=== PATIENT | male | born 1960 | race Caucasian/White ===

== ENCOUNTER 2022-03-11 00:48 | Day surgery (SDC) | payer OTHER, SELFPAY ==
[2022-02-26 12:58] VITALS: BMI 27.9
--- NOTE | 2022-03-10 17:00 | PM.HPGS ---
History of Present Illness History of Present Illness Consent: Risks, benefits, and alternatives have been discussed and questions answered. Patient agrees to proceed with procedure. Chief complaint: neoplasm screening Narrative: Khari Chopra is a 61 year old male referred for colon cancer screening. This is his 1st colonoscopy Review of Systems Review of Systems: All systems reviewed & are unremarkable except as noted in HPI and below PMFSH Past Medical History Medical History Bilateral cataracts BMI 27.0-27.9,adult QASIM (obstructive sleep apnea) Screen for colon cancer Screening for lipid disorders Screening for prostate cancer Family History Family History Father Mother Acute myocardial infarction Sibling No problems noted. 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 Gender identity (if verbalized by the patient): Male Spiritual care concerns: No Meds Home Medications and Allergies Home Medications Medication Instructions Recorded Confirmed Type No Home Medications 01/30/22 02/26/22 History Allergies Allergy/AdvReac Type Severity Reaction Status Date / Time No Known Allergies Allergy Verified 03/11/22 08:20 Exam Resp: Auscultation: clear to auscultation bilaterally Cardio: Rate: regular rate Rhythm: regular rhythm GI: GI Palp: Yes Soft to palpation and No Tenderness to palpation present (GI) Assessment and Plan Assessment and plan (1) Screen for colon cancer: Code(s): Z12.11 - Encounter for screening for malignant neoplasm of colon Status: Acute Assessment and Plan: Colonoscopy with possible biopsy or polypectomy or cautery or injection of substances.
[2022-03-11 08:21] VITALS: BP 130/77; PULSE 92; RESP 16; TEMP 36.2; O2SAT 95
[2022-03-11] MEDS: LACTATED RINGERS 1,000 ML 150 ML IV CONT (08:30)
--- NOTE | 2022-03-11 08:50 | P.PNAN_ITS ---
Anes - Initial Pre Proc Eval Procedure: Operation Date: 03/11/22 09:30 Proposed Procedures p Screening Colonoscopy - Matt Cohn MD Date/Time: 03/11/22 08:50 Surgeon: Matt Cohn MD Pre Op Diagnosis: neoplasm screening Patient Data Age: 61 Gender: M Height: 1.8 m Weight: 90.5 kg Last Vital Signs Temp 97.1 F L 03/11/22 08:21 Pulse 92 03/11/22 08:21 Resp 16 03/11/22 08:21 BP 130/77 03/11/22 08:21 Pulse Ox 95 03/11/22 08:21 Allergies Allergy/AdvReac Type Severity Reaction Status Date / Time No Known Allergies Allergy Verified 03/11/22 08:20 Home Medications Medication Instructions Recorded Confirmed Type No Home Medications 01/30/22 02/26/22 History Patient hx anesthesia problems: none Family hx anesthesia problems: none Results Review: All pre-operative results and documents have been reviewed as part of the pre-operative evaluation. [facility] Past Medical History Medical History Bilateral cataracts BMI 27.0-27.9,adult QASIM (obstructive sleep apnea) Screen for colon cancer Screening for lipid disorders Screening for prostate cancer Family History Family History Father Mother Acute myocardial infarction Sibling No problems noted. 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 Informed Consent: The patient's anesthetic plan and its attendant risks and benefits were discussed with the patient/family/POA. Questions were solicited and answers provided to the satisfaction of the patient/family/POA.
[2022-03-11] MEDS: SIMETHICONE ORAL SUSPENSION 20 MG/0.3 ML 30 ML BOTTLE 0.6 ML IRRIGATION (09:07)
[2022-03-11 09:15] VITALS: BP 105/70; PULSE 75; RESP 16; O2SAT 93
[2022-03-11 09:25] VITALS: BP 103/72; PULSE 80; RESP 20; O2SAT 98
[2022-03-11 09:35] VITALS: BP 123/90; PULSE 69; RESP 17; O2SAT 98
== END 2022-03-11 09:46 | disposition home or self-care (01) ==
PROVIDERS: PCP Family Medicine; Visit Provider Internal Medicine Gastroenterology
PROC: 0DJD8ZZ Inspection of Lower Intestinal Tract, Via Natural or Artificial Opening Endoscopic (ICD-10-PCS; CPT 45378; principal; 2022-03-11 09:30)
DX: Z12.11 Encounter for screening for malignant neoplasm of colon (principal); K57.30 Diverticulosis of large intestine without perforation or abscess without bleeding; D12.4 Benign neoplasm of descending colon; G47.33 Obstructive sleep apnea (adult) (pediatric)
CPT/HCPCS: 45385; 88305; J2704; J7120

== ENCOUNTER 2023-06-15 08:13 | Outpatient (CLI) | payer OTHER, SELFPAY ==
--- NOTE | 2023-06-19 19:10 | WPDHOMESLEEP ---
Sleep Study - Home Unattended Date of Study: 06/15/23 Ordering Provider: Leonard Dias MD Interpreting Provider: Claire Stacy, DO Home Sleep Study Type: Apnea Link Air Height: 1.8 m Weight: 86.183 kg Body Mass Index: 26.4 Neck Circumference (inches): 15.5 [place]: 9 Reason for Sleep Study Witnessed apneas, daytime hypersomnia Sleep History The patient is a 62-year-old male that had a sleep study ordered by his primary care for evaluation of sleep apnea. The patient occasionally awakens from sleep short of breath. He occasionally awakens at night with heartburn, belching or cough. He constantly snores loudly enough that others complain. He constantly has trouble sleeping when he has a cold. He occasionally wakes up gasping for air throughout the night. He rarely has breathing problems at night observed by himself or others. He rarely sweats excessively at night. He occasionally has heart palpitations or irregular heartbeats during the night. He rarely falls asleep during the day but never while driving. He denies cataplexy. He occasionally has trouble at school or work due to sleepiness. He frequently feels unable to move while waking up or falling asleep. He occasionally experiences vivid dreamlike scenes upon awakening or falling asleep. He rarely feels afraid of going to sleep. He occasionally has nightmares and occasionally remembers his dreams. He rarely has thoughts racing through his mind. He rarely feels sad or depressed. He rarely has anxiety. He rarely has muscular tension. He occasionally notices parts of his body jerk. He occasionally kicks during the night. He rarely has crawling and aching feelings in his legs and rarely has leg pain during the night. He constantly grinds his teeth during sleep but never awakens with morning jaw pain. He denies being bothered by pain during the day and rarely awakens by pain during the night. He occasionally wakes up feeling stiff in the morning. He denies waking up with sore or achy muscles. He denies waking up with pain in the neck, spine or other joints. He goes to bed at 11:00 p.m. on both weekdays and weekends. It takes him 30 minutes or up to an hour to fall asleep. He wakes up 3 times throughout the night to toss and turn and it can take 1 hour for him to fall back asleep. He wakes up at 8:00 a.m. on both weekdays and weekends. He typically gets 4-5 hours of sleep per night. He will stay in bed for 30 minutes after waking up in the morning. He does not consume any caffeinated beverages within 2 hours of bedtime. He does not engage in physical exercise before bedtime. He will watch television before falling asleep. He will take naps in the afternoon or the evening but they are not refreshing. He consumes 3 cups of caffeinated beverage per day. He denies alcohol and recreational drug use. [facility] Past Medical History Medical History Bilateral cataracts BMI 27.0-27.9,adult Cataract (lens) fragments in eye following cataract surgery, bilateral QASIM (obstructive sleep apnea) Overweight with body mass index (BMI) of 28 to 28.9 in adult Screen for colon cancer Screening for lipid disorders Screening for prostate cancer Family History Family History Father Mother Acute myocardial infarction Sibling No problems noted. 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
[2023-06-19 19:17] VITALS: BMI 26.4
== END 2023-06-17 14:27 | disposition home or self-care (01) ==
LOC: ANHCSM 08:14
PROVIDERS: PCP Family Medicine; Visit Provider Family Medicine
DX: G47.10 Hypersomnia, unspecified (principal); G47.33 Obstructive sleep apnea (adult) (pediatric)
CPT/HCPCS: 95806

== ENCOUNTER 2023-08-11 09:09 | Outpatient (CLI) | payer OTHER, SELFPAY ==
--- NOTE | 2023-08-25 11:41 | WPDSLEEPSTUD ---
Sleep Study Date of Study: 08/11/23 Ordering Provider: Leonard Dias MD Interpreting Physician: Meaghan Akhtar MD Sleep Study Type: BiPAP Titration Height: 1.8 m Weight: 86.183 kg Body Mass Index: 26.4 Neck Circumference (inches): 15.5 [place]: 9 Reason for Sleep Study * 06/15/2023 home sleep test with [facility]nea[facility] showing severe obstructive sleep apnea, AHI of 51.2 with desaturation down to 73%, and central apnea index 10.8; pateint presents for PAP titration. Sleep History Khari Bunch is a 63-year-old male with severe obstructive sleep apnea on a home sleep test, returns for PAP titration. He occasionally awakens from sleep feeling short of breath.? He occasionally awakens at night with heartburn, belching or coughing.? He constantly snores loudly enough that others complain.? He constantly has trouble sleeping when he has a cold.? He occasionally wakes up gasping for air at night. He rarely has breathing problems at night observed by others.? He rarely sweats excessively at night.? He occasionally has heart palpitations or irregular heartbeats during the night.? He rarely falls asleep during the day but never while driving.? He denies muscle weakness with strong emotion. He occasionally has trouble at school or work due to sleepiness.? He frequently feels unable to move while waking up or falling asleep.? He occasionally experiences vivid dreamlike scenes upon awakening or falling asleep.? He rarely feels afraid of going to sleep.? He occasionally has nightmares and occasionally remembers his dreams.? He rarely has thoughts racing through his mind.? He rarely feels sad or depressed.? He rarely has anxiety.? He rarely has muscular tension.? He occasionally notices parts of his body jerk.? He occasionally kicks during the night.? He rarely has crawling and aching feelings in his legs and rarely has leg pain during the night.? He constantly grinds his teeth during sleep but never awakens with morning jaw pain.? He denies being bothered by pain during the day and rarely awakens by pain during the night.? He occasionally wakes up feeling stiff in the morning.? He denies waking up with sore or achy muscles.? He denies waking up with pain in the neck, spine or other joints.? Normal bedtime is 11:00 p.m., taking 30 minutes or up to an hour to fall asleep.? He wakes up 3 times throughout the night to toss and turn, sometimes taking an hour for him to return to sleep. He wakes up at 8:00 a.m. He typically gets 4-5 hours of sleep per night.? He will take naps in the afternoon or the evening however a short nap is not refreshing.? Habits: Tobacco: none. Caffeine: 3 cups per day. Alcohol: none. Recreational substance: none. [facility] Past Medical History Medical History (Updated 08/26/23 @ 10:20 by Meaghan Akhtar MD) Bilateral cataracts BMI 27.0-27.9,adult Cataract (lens) fragments in eye following cataract surgery, bilateral QASIM (obstructive sleep apnea) Overweight with body mass index (BMI) of 28 to 28.9 in adult Screen for colon cancer Screening for lipid disorders Screening for prostate cancer Family History Family History Father Mother Acute myocardial infarction Sibling No problems noted. 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
[2023-08-26 10:16] VITALS: BMI 26.4
== END 2023-08-12 07:20 | disposition home or self-care (01) ==
LOC: ANHCSM 09:12
PROVIDERS: PCP Family Medicine; Visit Provider Family Medicine
DX: G47.33 Obstructive sleep apnea (adult) (pediatric) (principal)
CPT/HCPCS: 95811

== ENCOUNTER 2023-09-27 12:46 | Outpatient (CLI) | payer OTHER, SELFPAY ==
--- NOTE | 2023-09-27 13:00 | ECHO_ITS ---
Patient Info Name: Khari Chopra Age: 63 years : 1960 Gender: Male Ht: 71 in Wt: 190 lbs BSA: 2.09 m2 HR: 80 bpm BP: 131 / 94 mmHg Heart Rhythm: Sinus Rhythm Technical Quality: Fair Exam Date: 09/27/2023 1:05 PM Exam Location: Echo Lab Patient Status: Outpatient Admit Date: 09/27/2023 Staff Ordering Physician: Alfonzo Woodard NP Package Line Relief Operator: Stephany Bhatia RDCS Attending Provider: Alfonzo Woodard NP Referring Physician: Vance ALVAREZ; Exam Type: CA echo doppler color flow Study Info Indications - Obstructive sleep apnea (adult) Complete two-dimensional, color flow and Doppler transthoracic echocardiogram is performed. Summary 1. Complete two-dimensional, color flow and Doppler transthoracic echocardiogram is performed. 2. Left ventricular chamber dimension is normal. 3. Left ventricular systolic function is normal, estimated at 60-65%. 4. There is mild concentric increased left ventricular wall thickness. 5. The left ventricular diastolic function is grade I diastolic dysfunction. 6. E/e' 9 is minimally elevated. 7. There is mild aortic valve sclerosis. 8. The mitral valve has severely calcified anterior leaflets. 9. There is mild tricuspid valve regurgitation. 10. No pulmonary hypertension, estimated pulmonary arterial systolic pressure is 22 mmHg. Left Ventricle E/e' 9 is minimally elevated. Left ventricular chamber dimension is normal. Left ventricular systolic function is normal, estimated at 60-65%. There is mild concentric increased left ventricular wall thickness. The left ventricular diastolic function is grade I diastolic dysfunction. Right Ventricle Right ventricular systolic function is normal and with normal TAPSE 1.8 cm. Right ventricular chamber dimension is normal. Left Atria Left atrial chamber dimension is normal. Right Atria Right atrial chamber dimension is normal. Aortic Valve The aortic valve is trileaflet. There is mild aortic valve sclerosis. There is no aortic valve stenosis. There is no aortic valve regurgitation. Pulmonic Valve There is no pulmonic regurgitation. Mitral Valve The mitral valve has severely calcified anterior leaflets. There is no mitral valve stenosis. There is no mitral valve regurgitation. Tricuspid Valve There is mild tricuspid valve regurgitation. No pulmonary hypertension, estimated pulmonary arterial systolic pressure is 22 mmHg. Pericardium/Pleural There is no pericardial effusion. Inferior Vena Cava Normal inferior vena cava with >50% collapse upon inspiration consistent with normal right atrial pressure, 5 mmHg. Aorta The aortic root size at the sinus of Valsalva is normal. Left Ventricular Outflow Tract Name Value Normal LVOT 2D LVOT Diameter 2.0 cm LVOT Doppler LVOT Peak Gradient 4 mmHg LVOT Mean Gradient 2 mmHg LVOT VTI 18 cm LVOT VTI/AV VTI Ratio 0.6 LVOT Stroke Volume 57 ml LVOT CO 4.0 l/min LVOT CI 1.9 l/min/m2 Pulmonic Valve
== END 2023-09-27 12:47 | disposition home or self-care (01) ==
LOC: ANHCARD 12:46
PROVIDERS: PCP Family Medicine; Visit Provider Nurse Practitioner Family
DX: G47.33 Obstructive sleep apnea (adult) (pediatric) (principal); I36.1 Nonrheumatic tricuspid (valve) insufficiency
CPT/HCPCS: 93306